=== PATIENT | female | born 1930 | race Caucasian/White ===

== ENCOUNTER 2017-08-22 13:05 | Inpatient (IN) | payer OTHER ==
[~2017-08-22] VITALS: Ht 162.5 cm; Wt 75.5 kg
[~2017-08-22 13:05] MED LIST: ALDACTONE25 MG PO; AVAPRO75 MG PO; BETHANECHOL CHL25 MG PO; COL-RITE100 M1 PO; COREG6.25 MG PO; CRESTOR20 M1 PO; DAILY VITAMIN1 EAC2 PO; DILTIAZEM 24HR120 MG PO; DOXYCYLINE50 MG PO; ELIQUIS2.5 M1 PO; FLOMAX0.4 MG PO; GLIPIZIDE10 M2 PO; GLYBURIDE2.5 MG PO; IMDUR SA30 MG PO; LANOXIN0.125 MG PO; LASIX20 MG PO; LISINOPRIL5 MG PO; NOVOLOG MI100 UNIT/1 SQ; OMEPRAZOLE MAGN20 MG PO; PACERONE200 MG PO; PRAVACHOL40 MG PO; RESTORIL15 MG PO; SYNTHROID0.15 MG PO; Synthroid,Lev150 MCG PO
[2017-08-22 13:32] LABS: HEMATOCRIT 33.6 % (37.0-47.0); HEMOGLOBIN 11.8 g/dl (12.0-16.0); MEAN CORPUSCULAR HGB 28.8 pg (27.0-31.0); MEAN CORPUSCULAR HGB CONC 35.1 g/dl (33.0-37.0); MEAN PLATELET VOLUME 8.9 fl (9.6-12.3); PLATELET COUNT AUTOMATED 308 10*3/uL (130-400); RED CELL DISTRI WIDTH 13.8 % (0-14.5); WHITE BLOOD COUNT 20.5 10*3/uL (4.8-10.8)
[2017-08-22 13:47] LABS: ALBUMIN 3.3 gm/dl (3.1-4.5); ALKALINE PHOSPHATASE 95 U/L (45-117); BUN 15 mg/dl (7-24); CHLORIDE 95 mmol/L (98-107); CREATININE 1.04 mg/dL (0.55-1.02); POTASSIUM 4.4 mmol/L (3.5-5.1); SGOT/AST 52 IU/L (3-35); SGPT/ALT 65 U/L (12-78); SODIUM 129 mmol/L (136-145); TOTAL PROTEIN 7.6 gm/dL (6.4-8.2)
[2017-08-22 13:50] LABS: PLATELET SUFFICIENCY NORMAL (NORMAL); TOTAL CELLS COUNTED 100 #CELLS
[2017-08-22 13:56] VITALS: BP 140/58
[2017-08-22 15:01] LABS: BILIRUBIN NEGATIVE (NEGATIVE); BLOOD TRACE-LYSED (NEGATIVE); CLARITY SL CLOUDY (CLEAR); COLOR YELLOW (YELLOW); GLUCOSE NEGATIVE (NEGATIVE); KETONE NEGATIVE (NEGATIVE); LEUKO ESTERASE 1+ (NEGATIVE); NITRITE NEGATIVE (NEGATIVE); SPECIFIC GRAVITY 1.015 (1.005-1.030)
[2017-08-22 15:10] LABS: RBC 0-2 rbc/hpf (0-2); WBC 16-20 wbc/hpf (0-5)
[2017-08-22 16:10] VITALS: BP 121/48
[2017-08-22] MEDS ORDERED: LEVOTHYROXINE100 MC1 PO (17:39)
[2017-08-22] MEDS ORDERED: LEVOXYL112 MCG PO (17:40)
[2017-08-22] MEDS ORDERED: SILENOR6 M1 PO (17:42)
[2017-08-22] MEDS ORDERED: MIRTAZAPINE15 M2 PO (17:42)
[2017-08-22] MEDS ORDERED: TRAMADOL HCL50 MG PO (17:43)
[2017-08-22] MEDS ORDERED: NOVOLOG FL100 UNIT/1 SQ (17:45)
[2017-08-22 20:00] VITALS: BP 141/56
[2017-08-22] MEDS ORDERED: ASPERCREME76.5 GM T (21:28)
[2017-08-22] MEDS ORDERED: MAPAP325 MG PO (21:29)
[2017-08-22] MEDS ORDERED: CEPACOL SORE T1 EACH MM (21:29)
[2017-08-22] MEDS ORDERED: MOM30 M1 PO (21:32)
[2017-08-22 23:58] VITALS: BP 108/42
[2017-08-23 05:55] LABS: BASO % 0.2 % (0.0-1.0); EOS # 0.1 10*3/uL (0.0-0.4); EOS % 0.8 % (1.0-4.0); HEMATOCRIT 31.3 % (37.0-47.0); HEMOGLOBIN 10.9 g/dl (12.0-16.0); LYMPH # 2.4 10*3/uL (1.3-4.4); LYMPH % 14.3 % (27.0-41.0); MEAN CELL VOLUME 84.6 fl (81.0-99.0); MEAN CORPUSCULAR HGB 29.5 pg (27.0-31.0); MEAN CORPUSCULAR HGB CONC 34.8 g/dl (33.0-37.0); MEAN PLATELET VOLUME 9.4 fl (9.6-12.3); MONO # 1.4 10*3/uL (0.1-1.0); MONO % 8.3 % (3.0-9.0); NEUT # 12.5 10*3/uL (2.3-7.9); NEUT % 75.8 % (47.0-73.0); PLATELET COUNT AUTOMATED 265 10*3/uL (130-400); RED CELL DISTRI WIDTH 13.9 % (0-14.5); WHITE BLOOD COUNT 16.6 10*3/uL (4.8-10.8)
[2017-08-23 06:24] LABS: BUN 11 mg/dl (7-24); CHLORIDE 99 mmol/L (98-107); CHOLESTEROL 140 mg/dL (<200); CREATININE 0.76 mg/dL (0.55-1.02); HDL CHOLESTEROL 43 mg/dl (40-60); LDL CHOLESTEROL 77 mg/dL (9-159); PHOSPHOROUS 2.8 mg/dL (2.5-4.9); POTASSIUM 3.8 mmol/L (3.5-5.1); SODIUM 134 mmol/L (136-145); TRIGLYCERIDES 102 mg/dl (<150); VLDL CHOLESTEROL 20 mg/dL (6-40)
[2017-08-23 06:31] LABS: THYROID STIM HORMONE (HS) 0.182 uIU/ml (0.358-4.75)
[2017-08-23 07:03] LABS: VITAMIN D, 25-HYDROXY 18.3 ng/mL (30-100)
[2017-08-23 08:00] VITALS: BP 142/57
[2017-08-23 12:00] VITALS: BP 105/66
[2017-08-23 16:00] VITALS: BP 130/59
[2017-08-23 20:00] VITALS: BP 126/42
[2017-08-24] VITALS: BP 125/49
[2017-08-24 06:21] LABS: BASO # 0.1 10*3/uL (0.0-0.1); BASO % 0.5 % (0.0-1.0); EOS # 0.4 10*3/uL (0.0-0.4); EOS % 3.1 % (1.0-4.0); HEMATOCRIT 31.2 % (37.0-47.0); HEMOGLOBIN 10.5 g/dl (12.0-16.0); LYMPH # 2.2 10*3/uL (1.3-4.4); LYMPH % 17.6 % (27.0-41.0); MEAN CELL VOLUME 85.5 fl (81.0-99.0); MEAN CORPUSCULAR HGB 28.8 pg (27.0-31.0); MEAN CORPUSCULAR HGB CONC 33.7 g/dl (33.0-37.0); MEAN PLATELET VOLUME 9.4 fl (9.6-12.3); MONO # 1.1 10*3/uL (0.1-1.0); MONO % 8.7 % (3.0-9.0); NEUT # 8.7 10*3/uL (2.3-7.9); NEUT % 69.7 % (47.0-73.0); PLATELET COUNT AUTOMATED 254 10*3/uL (130-400); RED BLOOD COUNT 3.65 10*6/uL (4.10-5.10); RED CELL DISTRI WIDTH 13.8 % (0-14.5); WHITE BLOOD COUNT 12.4 10*3/uL (4.8-10.8)
[2017-08-24 06:40] LABS: BUN 11 mg/dl (7-24); CHLORIDE 100 mmol/L (98-107); CREATININE 0.79 mg/dL (0.55-1.02); POTASSIUM 4.3 mmol/L (3.5-5.1); SODIUM 135 mmol/L (136-145)
[2017-08-24 08:00] VITALS: BP 128/52
[2017-08-24 16:00] VITALS: BP 132/67
[2017-08-24 20:00] VITALS: BP 132/53
[2017-08-25] VITALS: BP 131/51
[2017-08-25 08:00] VITALS: BP 153/60
[2017-08-25 12:00] VITALS: BP 127/56
[2017-08-25] MEDS ORDERED: AUGMENTIN 875875 MG PO (14:00)
[2017-08-25 16:00] VITALS: BP 134/63
[2017-08-25 20:00] VITALS: BP 154/63
[2017-08-26] VITALS: BP 121/52
[2017-08-26 07:12] LABS: BASO # 0.1 10*3/uL (0.0-0.1); BASO % 0.7 % (0.0-1.0); EOS # 0.6 10*3/uL (0.0-0.4); EOS % 6.8 % (1.0-4.0); HEMATOCRIT 31.6 % (37.0-47.0); HEMOGLOBIN 10.8 g/dl (12.0-16.0); LYMPH # 1.8 10*3/uL (1.3-4.4); MEAN CELL VOLUME 85.2 fl (81.0-99.0); MEAN CORPUSCULAR HGB 29.1 pg (27.0-31.0); MEAN CORPUSCULAR HGB CONC 34.2 g/dl (33.0-37.0); MEAN PLATELET VOLUME 9.3 fl (9.6-12.3); MONO % 11.3 % (3.0-9.0); NEUT # 5.5 10*3/uL (2.3-7.9); NEUT % 60.5 % (47.0-73.0); PLATELET COUNT AUTOMATED 319 10*3/uL (130-400); RED BLOOD COUNT 3.71 10*6/uL (4.10-5.10); RED CELL DISTRI WIDTH 13.8 % (0-14.5); WHITE BLOOD COUNT 9.1 10*3/uL (4.8-10.8)
[2017-08-26 07:41] LABS: BUN 11 mg/dl (7-24); CHLORIDE 100 mmol/L (98-107); CREATININE 0.71 mg/dL (0.55-1.02); POTASSIUM 4.2 mmol/L (3.5-5.1); SODIUM 136 mmol/L (136-145)
[2017-08-26 08:00] VITALS: BP 140/67
== END 2017-08-26 11:15 | disposition home or self-care (01) | DRG 871 ==
LOC: ED 13:05 → 5E 15:32 → EDHOLD 15:32 → 5E 15:41
PROVIDERS: Emergency Medicine; Student in an Organized Health Care Education/Training Program
DX: A40.3 Sepsis due to Streptococcus pneumoniae (principal); N17.0 Acute kidney failure with tubular necrosis; J18.1 Lobar pneumonia, unspecified organism; E11.65 Type 2 diabetes mellitus with hyperglycemia; D64.9 Anemia, unspecified; I50.9 Heart failure, unspecified; N39.0 Urinary tract infection, site not specified; E44.1 Mild protein-calorie malnutrition; E87.1 Hypo-osmolality and hyponatremia; B96.89 Other specified bacterial agents as the cause of diseases classified elsewhere; K21.9 Gastro-esophageal reflux disease without esophagitis; E55.9 Vitamin D deficiency, unspecified; E03.9 Hypothyroidism, unspecified; G89.29 Other chronic pain; M25.551 Pain in right hip; Z68.26 Body mass index [BMI] 26.0-26.9, adult; Z95.810 Presence of automatic (implantable) cardiac defibrillator; I25.2 Old myocardial infarction; Z95.1 Presence of aortocoronary bypass graft; Z79.4 Long term (current) use of insulin; Z95.5 Presence of coronary angioplasty implant and graft; Z82.49 Family history of ischemic heart disease and other diseases of the circulatory system; Z83.3 Family history of diabetes mellitus; Z88.2 Allergy status to sulfonamides; Z88.5 Allergy status to narcotic agent; Z79.1 Long term (current) use of non-steroidal anti-inflammatories (NSAID); Z79.899 Other long term (current) drug therapy; Z87.11 Personal history of peptic ulcer disease

== ENCOUNTER 2019-01-25 19:02 | Inpatient (IN) | payer MEDICARE, OTHER ==
[~2019-01-25] VITALS: Ht 167.6 cm; Wt 78.0 kg
--- NOTE | ~2019-01-25 | PR ---
[place], [place] PROGRESS NOTE NAME: JEROD RO UNIT #: [id number] ROOM: 521 DOCTOR: YONNY ALCANTARA [facility] BIRTHDATE: [birth year] DOS: 01/28/2019 SUBJECTIVE: The patient is alert, responding well. Not dyspneic, not tachypneic. No significant orthopnea. Color is good. Edema is still present, but it appears to be improving. OBJECTIVE; VITAL SIGNS: Stable. LUNGS: Diminished breath sounds at bases with minimal basilar rales, no wheezing. HEART: S1, S2 irregular. Heart rate is optimal, 2/6 systolic murmur. IMPRESSION: The patient has continued to improve, making good progress. PLAN: We will continue current management. The patient should be in discuss with the physical therapy and I will talk to Dr. Godfrey will make the appropriate arrangements and after discussing with the plan, it look may not want to go back to [facility]. Rest of the family was reassured. TANK BLANCAS MD CM:PNTRANS [id number] TANK BLANCAS MD [facility] 01/28/19 1144 interface
--- NOTE | ~2019-01-25 | EKG ---
[place], [place] ELECTROCARDIOGRAM REPORT NAME: JEROD RO UNIT #: [id number] ROOM: 521 DOCTOR: JEAN DRAFT REPORT BIRTHDATE: [birth year] [facility] Test Date: 2019-01-25 Test Time: 19:44:29 Pat Name: JEROD RO Department: Room: 521 Gender: F Sr Vice President: : 1930 Requested By: ADRYAN ALVAREZ Order Number: [id number] Reading MD: Dominique Knowles MD Measurements Intervals [place] Rate: 91 P: AR: QRS: -7 QRSD: 128 T: 173 QT: 359 QTc: 442 Interpretive Statements Atrial fibrillation Ventricular premature complex IVCD, consider atypical LBBB Compared to ECG 12/30/2018 16:50:59 Ventricular premature complex(es) now present Ventricular-paced complex(es) or rhythm no longer present Electronically Signed On 01-29-2019 9:05:54 PDT by Dominique Knowles MD CM:EKGRPT:ELECTROCARDIOGRAM REPORT 43 4 ADRYAN ALVAREZ EPIPHANY DRAFT REPORT ADRYAN ALVAREZ
--- NOTE | ~2019-01-25 | O ---
[place], [place] OPERATIVE NOTE [id number] UN[facility] #: [id number] ROOM: 521 DOCTOR: YONNY ALCANTARA [facility] BIRTHDATE: [birth year] DOS: 02/01/2019 I saw the patient and also talked to the patient and the patient feels a lot better, no dyspnea, edema markedly improved. PHYSICAL EXAMINATION: SKIN: Warm, not diaphoretic. Color is good. NECK: No significant jugular venous distention. LUNGS: Diminished breath sounds at the bases. No wheezing. HEART: S1, S2 regular. Heart rate is optimal. ABDOMEN: Soft, 1-2+. EXTREMITIES: Edema is improved and clinically doing lot better, less dyspnea. Peripheral edema, markedly improved. IMPRESSION: Hemodynamically, clinically stable. Congestive heart failure, improving, compensating quite well. PLAN: We will continue with the current management. Blood pressure is also stable at 108/58, heart rate is 75, afebrile. The patient is on oxygen at home also. TANK BLANCAS MD CM:OPRECORD:OPERATIVE NOTE [id number] TANK BLANCAS MD [facility] 02/02/1939 interface
--- NOTE | ~2019-01-25 | CON ---
[place], [place] REPORT OF CONSULTATION NAME: JAYJAYJEROD Van UNIT #: [id number] ROOM: 521 DOCTOR: YONNY ALCANTARA [facility] BIRTHDATE: [birth year] DOS: 01/26/2019 HISTORY OF PRESENT ILLNESS: The patient came with history of progressive dyspnea and progressive increasing peripheral edema. The patient has systolic congestive heart failure with ejection fraction of 20-25%, who appears to be ischemic and primary Dr. Luis Godfrey and the patient's family and the sisters called back not getting optimal care in the current skilled care facility and they want to change this subsequently; however, the patient with recently progressive congestive heart failure could be systolic and also may be some of this due to diastolic dysfunction. Denies any significant chest discomfort, no syncope. Progressive fatigue. The patient with history of coronary artery disease, chronic kidney disease, congestive heart failure, hypertension, coronary artery bypass surgery and history of pacemaker placement. The patient was in the emergency clinic from emergency transport service. She appears to have some risks. There is some personality issues with the family and the staff at the snf. The patient's ejection fraction about 15%-20%, global hypokinesis of the left ventricle and paced rhythm. The patient was recently in the hospital with enlarged left ventricle congestive heart failure. PHYSICAL EXAMINATION: VITAL SIGNS: Stable. Blood pressure 120/68. GENERAL: Not any acute distress, with good response to the therapy. NECK: With positive hepatojugular reflux. LUNGS: Diminished breath sounds at bases, bibasilar rales. HEART: S1, S2 regular. Heart rate is optimal. 2/6 systolic murmur. The patient is afebrile. Cognition is optimal. ABDOMEN: Soft. No rebound tenderness noted. LABORATORY DATA: Sodium 146, potassium 3.7 with supplements and GFR is low. Creatinine 1.61. DIAGNOSES: There is stage 3 chronic kidney disease, hypertension, hypertensive cardiovascular disease, and atrial fibrillation on anticoagulation, congestive heart failure, history of atrial fibrillation, coronary artery disease, coronary artery bypass surgery and the pacemaker for bradyarrhythmias. PLAN: We will continue the current management and medications and further dialysis and increased volume status that may help and responding fairly well with current management. [place], [place] REPORT OF CONSULTATION NAME: JEROD RO UNIT #: [id number] ROOM: 521 DOCTOR[facility] [birth year] TANK BLANCAS MD CM:CONSTR:REPORT OF CONSULTATION 1032 02/11/19 1457 interface
[~2019-01-25 19:02] MED LIST changes: +ALDACTONE25 M1 PO; +ASPERCREME76.5 GM T; +ASPIRIN ADULT L81 M1 PO; +AUGMENTIN 875875 MG PO; +BRILINTA90 M1 PO; +CARVEDILOL6.25 MG PO; +CEPACOL SORE T1 EACH MM; +COREG12.5 M1 PO; +COREG3.125 MG PO; +DIGOX125 MCG PO; +DOCUSATE SODIU100 M2 PO; +DULCOLAX10 M1 R; +FLEET ENEMA 13133 ML R; +FUROSEMIDE20 M1 PO; +FUROSEMIDE40 MG PO; +GABAPENTIN100 M2 PO; +IMDUR SA60 M1 PO; -LANOXIN0.125 MG PO; +LASIX40 MG PO; +LEVOTHYROXINE100 MC1 PO; +LEVOXYL112 MCG PO; +LOSARTAN POTASS25 M1 PO; +MAPAP325 MG PO; +MIRTAZAPINE15 M2 PO; +MOM30 M1 PO; +NOVOLOG FL100 UNIT/1 SQ; +PRILOSEC20 M1 PO; +ROZEREM8 MG PO; +SILENOR6 M1 PO; +SYNTHROID,LEV125 MCG PO; +TRAMADOL HCL50 MG PO; +VITAMIN D50000 UNIT PO; +Ventolin 02.5 MG/3 M INH
[2019-01-25 19:16] VITALS: BP 110/70
[2019-01-25 20:16] LABS: BASO % 0.2 % (0.0-1.0); EOS # 0.1 10*3/uL (0.0-0.4); EOS % 2.1 % (1.0-4.0); HEMATOCRIT 28.6 % (37.0-47.0); HEMOGLOBIN 8.3 g/dl (12.0-16.0); LYMPH # 1.3 10*3/uL (1.3-4.4); LYMPH % 21.5 % (27.0-41.0); MEAN CELL VOLUME 80.3 fl (81.0-99.0); MEAN CORPUSCULAR HGB 23.3 pg (27.0-31.0); MEAN PLATELET VOLUME 9.2 fl (9.6-12.3); MONO # 0.5 10*3/uL (0.1-1.0); MONO % 7.7 % (3.0-9.0); NEUT % 67.8 % (47.0-73.0); PLATELET COUNT AUTOMATED 238 10*3/uL (130-400); RED BLOOD COUNT 3.56 10*6/uL (4.10-5.10); RED CELL DISTRI WIDTH 21.2 % (0-14.5); WHITE BLOOD COUNT 5.9 10*3/uL (4.8-10.8)
[2019-01-25 20:27] LABS: ACT PARTIAL THROMBO TIME 25.9 SECONDS (20.0-32.1); INTERNATIONAL NORM RATIO 1.1 (2.0-3.5)
[2019-01-25 20:34] LABS: ALBUMIN 3.4 gm/dl (3.1-4.5); CREATININE 1.61 mg/dL (0.55-1.02); POTASSIUM 3.2 mmol/L (3.5-5.1); TOTAL PROTEIN 6.9 gm/dL (6.4-8.2); TROPONIN I 0.037 ng/ml (<0.045)
[2019-01-25 21:32] VITALS: BP 116/72
[2019-01-26 00:25] VITALS: BP 120/68
--- NOTE | 2019-01-26 00:27 | NUR ---
A 88, admitted to 5E, under the services of JOSE Tamez MD with a diagnosis of CHF. Chief complaint is ANXIETY. Patient arrived via bed from ER. Monitor applied. Initial assessment completed. Vital signs taken and recorded. JOSE TAMEZ MD notified of admission to the unit. Orders received. See assessment for past medical history, medications and allergies. Patient and/or family oriented to unit. [facility] visitation policy reviewed. Clothing/patient valuable form completed. AURA CONTRERAS
--- NOTE | 2019-01-26 05:37 | NUR ---
JEROD RO [id number] Please refer to the physician's history and physical for past medical history, comorbid conditions, and allergies. Diagnosis: DYSPNEA,EDEMA,ACUTE SYSTOLIC HEART FAILURE Jerad Score: 12,HIGH RISK WOUND DESCRIPTIONS: Wound Number: 1 Location of the wound: left posterior upper thigh Type of wound: stage 3 Thickness: Full Size: 0.4cm x 0.4cm x <0.1cm Tunneling: none Undermining: none Sinus Tract: none Presence of Exudate: Serosanguineous Amount: Light Color: Yellow, red Odor: None Periwound Skin Appearance: Normal Wound edges: approximated Pain (associated with wound): none at time of assessment How does patient state this happened? pt unsure when this started Wound Number: 2 Location of the wound: left buttocks distal Type of wound: stage 3 Thickness: Full Size: 0.4cm x 0.3cm x <0.1cm Tunneling: none Undermining: none Sinus Tract: none Presence of Exudate: Serosanguineous Amount: Light Color: Yellow, red Odor: None Periwound Skin Appearance: Normal Wound edges: approxiamted Pain (associated with wound): none at time of assessment How does patient state this happened? pt unsure when this started Wound Number: 3 Location of the wound: left buttocks proximal Type of wound: stage 3 Thickness: Full Size: 0.7cm x 1.2cm x <0.1cm Tunneling: none Undermining: none Sinus Tract: none Presence of Exudate: Serosanguineous Amount: Light Color: Yellow,red Odor: None Periwound Skin Appearance: Normal Wound edges: approximated Pain (associated with wound): none at time of assessment How does patient state this happened? pt unsure when this started Bilateral heels are mushy to touch. No open areas at time of assessment. Color is pink and blanchable at time of assessment. Surface the patient is resting on: Isoflex SKIN PREVENTION RECOMMENDATION: 1. Pressure redistribution support surface as appropriate 2. Elevate heels 3. Remove boots/TEDS every shift and reapply 4. Head of bed 30 degrees as tolerated 5. Assess nutrition and hydration 6. Manage moisture 7. Avoid the use of containment devices while in bed 8. Use absorptive products on surfaces limit layers of linens on bed 9. Turn and reposition every 1-2 hours in bed and every 1 hour in chair as tolerated 10. Weight shifts every 15 minutes while up in chair 11. Offloading with pillows or device to keep heels elevated off bed 12. Monitor skin at least every shift 13. Inspect under medical devices twice a day WOUND TREATMENT RECOMMENDATIONS: Stage 3 guidelines: Cleanse left posterior upper thigh, left proximal buttocks and left distal buttocks with nss and apply sureprep around the wound therahoney to wound bed and cover with optifoam gentle. Consult Analilia OLIVO- for possible debridement. Wheelchair cushion when oob. Heel raiser pro boots to bilateral feet while in bed.
[2019-01-26 06:51] LABS: BASO % 0.2 % (0.0-1.0); EOS # 0.1 10*3/uL (0.0-0.4); EOS % 2.5 % (1.0-4.0); HEMATOCRIT 31.8 % (37.0-47.0); HEMOGLOBIN 8.9 g/dl (12.0-16.0); LYMPH # 1.2 10*3/uL (1.3-4.4); LYMPH % 23.4 % (27.0-41.0); MEAN CELL VOLUME 79.9 fl (81.0-99.0); MEAN CORPUSCULAR HGB 22.4 pg (27.0-31.0); MEAN PLATELET VOLUME 9.1 fl (9.6-12.3); MONO # 0.5 10*3/uL (0.1-1.0); MONO % 8.7 % (3.0-9.0); NEUT # 3.4 10*3/uL (2.3-7.9); NEUT % 64.8 % (47.0-73.0); PLATELET COUNT AUTOMATED 226 10*3/uL (130-400); RED BLOOD COUNT 3.98 10*6/uL (4.10-5.10); RED CELL DISTRI WIDTH 21.3 % (0-14.5); WHITE BLOOD COUNT 5.3 10*3/uL (4.8-10.8)
[2019-01-26 07:11] LABS: ALBUMIN 3.6 gm/dl (3.1-4.5); CREATININE 1.36 mg/dL (0.55-1.02); POTASSIUM 3.1 mmol/L (3.5-5.1)
[2019-01-26 07:19] LABS: FREE T4 0.81 ng/dl (0.76-1.46); PHOSPHOROUS 2.7 mg/dL (2.5-4.9); TOTAL PROTEIN 7.3 gm/dL (6.4-8.2)
[2019-01-26 07:57] LABS: THYROID STIM HORMONE (HS) 30.4 uIU/ml (0.358-4.75)
[2019-01-26 08:00] VITALS: BP 112/72
--- NOTE | 2019-01-26 08:16 | NUR ---
PAGE SENT OUT TO DR. Rehan BLANCAS FOR CONSULT ON PATIENT.
--- NOTE | 2019-01-26 08:24 | NUR ---
DR AYO Van MADE AWARE OF CONSULT. SAID HE WILL STOP IN AND SEE THE PATIENT TODAY.
[2019-01-26 08:25] LABS: BILIRUBIN NEGATIVE (NEGATIVE); BLOOD NEGATIVE (NEGATIVE); CLARITY SL CLOUDY (CLEAR); COLOR YELLOW (YELLOW); GLUCOSE NEGATIVE (NEGATIVE); KETONE NEGATIVE (NEGATIVE); LEUKO ESTERASE TRACE (NEGATIVE); NITRITE POSITIVE (NEGATIVE); UROBILINOGEN 0.2 E.U./dl (0.2-1.0)
[2019-01-26 08:38] LABS: BACTERIA 4+
--- NOTE | 2019-01-26 10:00 | NUR ---
Aaliyah, palliative care nurse, in to see patient. Son wishes no more palliative care.
[2019-01-26 11:48] VITALS: BP 116/59
--- NOTE | 2019-01-26 12:31 | NUR ---
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
--- NOTE | 2019-01-26 13:00 | NUR ---
Plasticator in to see patient. She is a LTC resident at [facility] and wishes not to return. 2 sisters are at the bedside. Patient and sisters would like a referral to be made to [facility]. shoe planner notified.
--- NOTE | 2019-01-26 13:39 | NUR ---
Although patient is group home at [facility], patient requested to [facility] Patient moving out of [facility] to another facility. will follow
[2019-01-26 16:00] VITALS: BP 115/75
[2019-01-26 20:00] VITALS: BP 100/57
--- NOTE | 2019-01-26 20:30 | NUR ---
24 HR chart check completed.
[2019-01-27] VITALS: BP 116/54
--- NOTE | 2019-01-27 01:20 | NUR ---
PATIENT SLEEPING. NO SIGNS OR SYMPOTMS OF DISTRESS.
[2019-01-27 07:00] LABS: ALBUMIN 3.7 gm/dl (3.1-4.5); CREATININE 1.27 mg/dL (0.55-1.02)
--- NOTE | 2019-01-27 09:00 | NUR ---
Rn Progressive Care Unit in to see patient. No new needs or request at this time. Patient is a LTC resident at [facility]. material planner following for referrals to [facility] [place].
[2019-01-27 12:00] VITALS: BP 116/63
--- NOTE | 2019-01-27 13:00 | NUR ---
16FR VALENTINO INSERTED USING STERILE TECHNIQUE. IMMEDIATE RETURN OF 200CC STRAW COLORED URINE. PT TOLERATED PROCEDURE WELL
[2019-01-27 16:00] VITALS: BP 103/63
[2019-01-27 20:00] VITALS: BP 100/53
[2019-01-28] VITALS: BP 97/50
[2019-01-28 06:52] LABS: BASO % 0.4 % (0.0-1.0); EOS # 0.3 10*3/uL (0.0-0.4); EOS % 4.6 % (1.0-4.0); HEMATOCRIT 27.8 % (37.0-47.0); HEMOGLOBIN 7.9 g/dl (12.0-16.0); LYMPH # 1.2 10*3/uL (1.3-4.4); LYMPH % 21.1 % (27.0-41.0); MEAN CELL VOLUME 79.9 fl (81.0-99.0); MEAN CORPUSCULAR HGB 22.7 pg (27.0-31.0); MEAN CORPUSCULAR HGB CONC 28.4 g/dl (33.0-37.0); MEAN PLATELET VOLUME 9.4 fl (9.6-12.3); MONO # 0.4 10*3/uL (0.1-1.0); MONO % 7.2 % (3.0-9.0); NEUT # 3.8 10*3/uL (2.3-7.9); NEUT % 66.3 % (47.0-73.0); PLATELET COUNT AUTOMATED 173 10*3/uL (130-400); RED BLOOD COUNT 3.48 10*6/uL (4.10-5.10); RED CELL DISTRI WIDTH 20.7 % (0-14.5); WHITE BLOOD COUNT 5.7 10*3/uL (4.8-10.8)
[2019-01-28 07:21] LABS: POTASSIUM 4.2 mmol/L (3.5-5.1)
[2019-01-28 07:22] LABS: CREATININE 1.18 mg/dL (0.55-1.02)
[2019-01-28 08:00] VITALS: BP 102/48
[2019-01-28 12:00] VITALS: BP 98/52
--- NOTE | 2019-01-28 12:52 | NUR ---
Patient has been accepted [facility] from [facility]. Patient is ok to go when medically stable for discharge.
[2019-01-28 16:00] VITALS: BP 97/56
--- NOTE | 2019-01-28 19:20 | NUR ---
2 SISTERS PRESENT AT BEDSIDE DURING REPORT. QUESTIONS / CONCERNS ADDRESSED
[2019-01-28 20:00] VITALS: BP 100/43; BP 102/50
--- NOTE | 2019-01-28 20:46 | NUR ---
24 HR chart check completed.
--- NOTE | 2019-01-28 21:00 | NUR ---
RESTING WITH EYES CLOSED. RESPIRATIONS EASY. LUNGS DIMINISHED. PULSE OX 97% 3L, HUMIDIFICATION APPLIED. +2 PITTING EDEMA NOTED FROM WAIST DOWN. BILATERAL TUBI-RETAIL MERCHANDISING COORDINATOR IN PLACE. HEEL PROTECTORS OBTAINED AND PLACED PER ORDER. VALENTINO PATENT. CALL LIGHT WITHIN REACH. BED ALARM IN PLACE FOR SAFETY
[2019-01-29] VITALS: BP 96/48
--- NOTE | 2019-01-29 | NUR ---
SLEEPING. NO ACUTE DISTRESS NOTED. RESPIRATIONS EASY. VSS. CALL LIGHT WITHIN REACH. BED ALARM MAINTAINED FOR SAFETY
[2019-01-29] MEDS ORDERED: LEVEMIR100 UNIT/1 SC (04:29)
[2019-01-29] MEDS ORDERED: ATIVAN0.5 MG PO (04:30)
[2019-01-29] MEDS ORDERED: MORPHINE S20 MG/5 ML PO (04:33)
[2019-01-29] MEDS ORDERED: NOVOLOG10 ML SC (04:33)
--- NOTE | 2019-01-29 06:00 | NUR ---
SLEPT THROUGHOUT NIGHT WITH NO DISTRESS NOTED. PATIENT UNCOOPERATIVE WITH TURNING AND REPOSITIONING. O2 IN USE. CALL LIGHT WITHIN REACH. BED ALARM MAINTAINED FOR SAFETY
[2019-01-29 07:00] LABS: BASO % 0.4 % (0.0-1.0); EOS # 0.2 10*3/uL (0.0-0.4); EOS % 4.8 % (1.0-4.0); HEMATOCRIT 25.7 % (37.0-47.0); HEMOGLOBIN 7.3 g/dl (12.0-16.0); LYMPH # 1.3 10*3/uL (1.3-4.4); LYMPH % 26.7 % (27.0-41.0); MEAN CELL VOLUME 78.1 fl (81.0-99.0); MEAN CORPUSCULAR HGB 22.2 pg (27.0-31.0); MEAN CORPUSCULAR HGB CONC 28.4 g/dl (33.0-37.0); MEAN PLATELET VOLUME 9.5 fl (9.6-12.3); MONO # 0.4 10*3/uL (0.1-1.0); NEUT % 59.7 % (47.0-73.0); PLATELET COUNT AUTOMATED 164 10*3/uL (130-400); RED BLOOD COUNT 3.29 10*6/uL (4.10-5.10); RED CELL DISTRI WIDTH 20.4 % (0-14.5)
[2019-01-29 07:12] LABS: CREATININE 1.25 mg/dL (0.55-1.02); POTASSIUM 4.1 mmol/L (3.5-5.1)
[2019-01-29 08:00] VITALS: BP 82/44
--- NOTE | 2019-01-29 09:00 | NUR ---
Records Clerk in to see patient. No new needs or request at this time. When medically stable she will be discharged to [facility]. strategic planner following.
--- NOTE | 2019-01-29 09:13 | NUR ---
HELD AM COREG AND COZAR FOR BP 82/44 MANUALLY.
--- NOTE | 2019-01-29 09:57 | NUR ---
ADMINISTERED MIRALAX PO FOR CONSTIPATION.
[2019-01-29 12:00] VITALS: BP 82/42
[2019-01-29 16:00] VITALS: BP 84/46
[2019-01-29 17:27] VITALS: BP 98/50; BP 98/60
--- NOTE | 2019-01-29 17:36 | NUR ---
DR. BLANCAS NOTIFIED OF BLOOD PRESSURES TODAY; OBTAINED ORDERS TO DISCONTINUE COREG AND COZAAR, DECREASE LASIX TO 20MG IV [id number], GIVE NORMAL SALINE 250ML BOLUS, DECREASE IMDUR TO 15 MG QHS, DECREASE FREQUENCY OF ALDACTONE TO FRI-FRI-, DECREASE K-DUR TO 20MEQ DAILY.
[2019-01-29 20:00] VITALS: BP 96/56
--- NOTE | 2019-01-29 20:50 | NUR ---
24 HR chart check completed.
--- NOTE | 2019-01-29 21:00 | NUR ---
RESTING WITH EYES CLOSED. RESPIRATIONS EASY. LUNGS DIMINISHED. PULSE OX 97% 3L HUMIDIFIED, TITRATED TO 2.5L. +1 PITTING EDEMA WAIST DOWN. BILATERAL TUBI-SPECIAL EDUCATION EDUCATIONAL ASSISTANT AND HEEL PROTECTORS IN PLACE. CALL LIGHT WITHIN REACH. NO VOICED COMPLAINTS. BED ALARM MAINTAINED FOR SAFETY
[2019-01-30] VITALS: BP 105/53
--- NOTE | 2019-01-30 | NUR ---
SLEEPING. PULSE OX 95% 2.5L
--- NOTE | 2019-01-30 06:00 | NUR ---
SLEPT THROUGHOUT NIGHT WITH NO DISTRESS NOTED. RESPIRATIONS EASY. O2 IN USE. CALL LIGHT WITHIN REACH
[2019-01-30 06:23] LABS: BASO % 0.4 % (0.0-1.0); EOS # 0.3 10*3/uL (0.0-0.4); EOS % 4.6 % (1.0-4.0); HEMATOCRIT 29.1 % (37.0-47.0); HEMOGLOBIN 8.4 g/dl (12.0-16.0); LYMPH # 1.3 10*3/uL (1.3-4.4); LYMPH % 23.2 % (27.0-41.0); MEAN CELL VOLUME 77.8 fl (81.0-99.0); MEAN CORPUSCULAR HGB 22.5 pg (27.0-31.0); MEAN CORPUSCULAR HGB CONC 28.9 g/dl (33.0-37.0); MEAN PLATELET VOLUME 9.3 fl (9.6-12.3); MONO # 0.6 10*3/uL (0.1-1.0); MONO % 10.2 % (3.0-9.0); NEUT # 3.5 10*3/uL (2.3-7.9); NEUT % 61.4 % (47.0-73.0); PLATELET COUNT AUTOMATED 168 10*3/uL (130-400); RED BLOOD COUNT 3.74 10*6/uL (4.10-5.10); RED CELL DISTRI WIDTH 20.5 % (0-14.5); WHITE BLOOD COUNT 5.7 10*3/uL (4.8-10.8)
[2019-01-30 06:46] LABS: CREATININE 1.24 mg/dL (0.55-1.02); POTASSIUM 3.9 mmol/L (3.5-5.1)
[2019-01-30 08:23] LABS: FERRITIN 49.2 ng/mL (10.0-291.0)
--- NOTE | 2019-01-30 10:27 | NUR ---
DRESSINGS CHANGED PER ORDER.
[2019-01-30 12:00] VITALS: BP 102/48
--- NOTE | 2019-01-30 15:51 | NUR ---
2 SISTERS AT THE BEDSIDE. QUESTIONS/CONCERNED ADDRESSED.
[2019-01-30 16:00] VITALS: BP 98/54
[2019-01-30 20:00] VITALS: BP 114/54
[2019-01-31] VITALS: BP 108/57
[2019-01-31 06:40] LABS: CREATININE 1.11 mg/dL (0.55-1.02); POTASSIUM 3.7 mmol/L (3.5-5.1)
[2019-01-31 12:00] VITALS: BP 95/50
[2019-01-31 16:00] VITALS: BP 100/51
--- NOTE | 2019-01-31 17:43 | NUR ---
VALENTINO CATHETER REMOVED PER ORDER.
[2019-01-31 20:00] VITALS: BP 121/64
[2019-02-01] VITALS: BP 107/61
--- NOTE | 2019-02-01 03:05 | NUR ---
24 HR chart check completed.
[2019-02-01 06:27] LABS: BASO % 0.3 % (0.0-1.0); EOS # 0.2 10*3/uL (0.0-0.4); EOS % 4.2 % (1.0-4.0); HEMATOCRIT 33.3 % (37.0-47.0); HEMOGLOBIN 9.9 g/dl (12.0-16.0); LYMPH # 1.4 10*3/uL (1.3-4.4); LYMPH % 23.7 % (27.0-41.0); MEAN CELL VOLUME 75.3 fl (81.0-99.0); MEAN CORPUSCULAR HGB 22.4 pg (27.0-31.0); MEAN CORPUSCULAR HGB CONC 29.7 g/dl (33.0-37.0); MEAN PLATELET VOLUME 9.5 fl (9.6-12.3); MONO # 0.5 10*3/uL (0.1-1.0); MONO % 8.5 % (3.0-9.0); NEUT # 3.6 10*3/uL (2.3-7.9); PLATELET COUNT AUTOMATED 165 10*3/uL (130-400); RED BLOOD COUNT 4.42 10*6/uL (4.10-5.10); RED CELL DISTRI WIDTH 20.4 % (0-14.5); WHITE BLOOD COUNT 5.8 10*3/uL (4.8-10.8)
[2019-02-01 06:32] LABS: BUN 14 mg/dl (7-24); CHLORIDE 98 mmol/L (98-107); POTASSIUM 3.3 mmol/L (3.5-5.1); SODIUM 138 mmol/L (136-145)
[2019-02-01 08:00] VITALS: BP 108/58
--- NOTE | 2019-02-01 09:00 | NUR ---
Employee Development Specialist in to see patient. No new needs or request at this time. When medically stable she will be discharged to [facility]. conference planner following.
--- NOTE | 2019-02-01 11:33 | NUR ---
PHYSICAL THERAPY PAtient is jail care and sleeping. FAmily member in room requests to let patient sleep at this time. Family member in room reports patient may be D/C today back to prison. Will check on patient later this date. Thank you for this referral. Kelsie Cano,PT
[2019-02-01 12:00] VITALS: BP 88/52
--- NOTE | 2019-02-01 14:41 | NUR ---
PHYSICAL THERAPY PAtient requests no PT this date. Thank you for this referral. Kelsie Cano,PT
[2019-02-01 16:00] VITALS: BP 112/60
[2019-02-01 20:00] VITALS: BP 97/65
[2019-02-02] VITALS: BP 105/61
--- NOTE | 2019-02-02 02:43 | NUR ---
CALL RECIEVED FROM [employer] AT THIS TIME. PATIENTS HEART RATE 140'S. WHEN IN TO ASSESS PATIENT, PATIENT WAS CLIMBING OUT OF BED IN TEARS BECAUSE SHE WOKE UP AND FORGOT WHERE SHE WAS AND SHE DIDN'T THINK ANYONE WAS HERE. REASSURED PATIENT SHE HAS BEEN BEING CHECKED ON ALL NIGHT AND THIS NURSE AND HER AID WILL BE WITH HER ALL NIGHT LONG. PATIENT STATED THAT SHE GOT VERY ANXIOUS AND VERY UPSET AND SHE IS FRUSTRATED AND NERVOUS GOING TO A NEW LONG-TERM TODAY. SHE STATED THAT SHE CAN FEEL THAT HER HEART IS RACING, AND THAT IT WILL CALM DOWN ONCE SHE CALMS DOWN. 1:1 SPENT WITH PATIENT AND REASSURANCE WAS GIVEN.
--- NOTE | 2019-02-02 02:47 | NUR ---
PATIENT HEART RATE NOW IN THE 110'S. PATIENT MUCH MORE RELAXED. CALL LIGHT WITHN REACH AND REASSURANCE GIVEN ONCE AGAIN, BEFORE HER SISTERS LEFT THE OTHER NIGHT, SHE STATED THAT SHE GETS THIS WAY SOMETIMES.
[2019-02-02 07:04] LABS: CREATININE 1.19 mg/dL (0.55-1.02)
[2019-02-02 07:05] LABS: POTASSIUM 4.4 mmol/L (3.5-5.1)
[2019-02-02 07:59] VITALS: BP 100/62
--- NOTE | 2019-02-02 08:05 | NUR ---
PHYSICAL THERAPY PAtient with nursing at this time. Will attempt later this date. Thak you for this referral. Kelsie Cano,PT
--- NOTE | 2019-02-02 09:00 | NUR ---
Candy Separator Hard in to see patient. No new needs or request at this time. When medically stable she will be discharged to [facility]. manufacturing planner following. Notified Dr. Mcgrath.
--- NOTE | 2019-02-02 11:09 | NUR ---
PHYSICAL THERAPY PAtient requests no PT this date. PAtients family member visiting reports she may return to [facility] this date. Thank you for this referral. Kelsie Cano,PT
[2019-02-02 11:26] VITALS: BP 102/59
[2019-02-02] MEDS ORDERED: LISINOPRIL2.5 MG PO (12:28)
--- NOTE | 2019-02-02 12:55 | NUR ---
Patient is discharged to [facility] in [place]. Transportation scheduled for 2 PM with [facility] per family request. NH, nursing/steward/stewardess third and patients sister notified.
--- NOTE | 2019-02-02 13:00 | NUR ---
WOUND DISCHARGE PICTURES TAKEN-SEE WOUND ASSESSMENT SCREEN.
--- NOTE | 2019-02-02 13:15 | NUR ---
IV AND TELEMETRY REMOVED FOR DISCHARGE.
--- NOTE | 2019-02-02 14:05 | NUR ---
Discharge instructions reviewed with patient/family. Patient receptive and verbalizes understanding. Follow-up care arranged. Written instructions given to patient/family. PATIENT DISCHARGED VIA [facility] TO [facility]. SUMAN IRAHETA
== END 2019-02-02 14:05 | disposition other institution (70) | DRG 291 ==
LOC: ED 19:02 → EDHOLD 23:28 → 5E 23:28
PROVIDERS: Family Medicine; Internal Medicine Cardiovascular Disease; Internal Medicine Nephrology; Nurse Practitioner Family; ADMIT Internal Medicine
DX: I13.0 Hypertensive heart and chronic kidney disease with heart failure and stage 1 through stage 4 chronic kidney disease, or unspecified chronic kidney disease (principal); I50.23 Acute on chronic systolic (congestive) heart failure; N17.2 Acute kidney failure with medullary necrosis; N39.0 Urinary tract infection, site not specified; L97.129 Non-pressure chronic ulcer of left thigh with unspecified severity; E87.1 Hypo-osmolality and hyponatremia; J98.11 Atelectasis; I48.91 Unspecified atrial fibrillation; E11.22 Type 2 diabetes mellitus with diabetic chronic kidney disease; L89.322 Pressure ulcer of left buttock, stage 2; E11.65 Type 2 diabetes mellitus with hyperglycemia; E78.5 Hyperlipidemia, unspecified; N18.3 Chronic kidney disease, stage 3 (moderate); I25.10 Atherosclerotic heart disease of native coronary artery without angina pectoris; E11.622 Type 2 diabetes mellitus with other skin ulcer; D64.9 Anemia, unspecified; B96.20 Unspecified Escherichia coli [E. coli] as the cause of diseases classified elsewhere; Z66 Do not resuscitate; R79.82 Elevated C-reactive protein (CRP); E83.41 Hypermagnesemia; K59.00 Constipation, unspecified; Z51.5 Encounter for palliative care; E87.6 Hypokalemia; K21.9 Gastro-esophageal reflux disease without esophagitis; E03.9 Hypothyroidism, unspecified; Z95.1 Presence of aortocoronary bypass graft; Z95.0 Presence of cardiac pacemaker; Z88.2 Allergy status to sulfonamides; Z88.5 Allergy status to narcotic agent; I25.2 Old myocardial infarction; Z87.11 Personal history of peptic ulcer disease; Z95.5 Presence of coronary angioplasty implant and graft; Z82.49 Family history of ischemic heart disease and other diseases of the circulatory system; Z83.3 Family history of diabetes mellitus; Z79.899 Other long term (current) drug therapy; Z79.890 Hormone replacement therapy

== ENCOUNTER 2019-02-14 03:01 | Inpatient (IN) | payer MEDICARE, OTHER ==
[2019-02-14] VITALS (9 sets, daily range): BP systolic 82–119; BP diastolic 40–78
[~2019-02-14] VITALS: Ht 170.2 cm; Wt 83.5 kg
--- NOTE | ~2019-02-14 | CON ---
[place], [place] REPORT OF CONSULTATION NAME: JEROD RO [facility] #: [id number] UNIT #: [id number] ROOM: [facility] DOCTOR: PARI AGUIAR MDHISH BIRTHDATE: [birth year] DOS: 02/14/2019 I am covering for Dr. Hernández. REASON FOR CONSULTATION: Increasing troponin of 3.5. HISTORY OF PRESENT ILLNESS: An 88-year-old female. Most of the information is obtained from the chart. The patient is unable to give any history. The patient came to the Emergency Room because of increasing shortness of breath, which was significantly severe. The patient was found to be in congestive heart failure. The patient was a comfort care, but now he is still a comfort care with the DNR with patient is being monitored in the Intensive Care Unit. PAST MEDICAL HISTORY: Significant for known history of systolic dysfunction with congestive heart failure, atrial fibrillation, renal failure, coronary artery disease, cerebral hemorrhage, chronic hyponatremia, chronic kidney disease, dyslipidemia, history of myocardial infarction, hypothyroidism, and history of ST elevation myocardial infarction. PAST SURGICAL HISTORY: History of permanent pacemaker, bypass surgery and stent placement. She does have a pacemaker and defibrillator placed in 1997, bypass surgery also at that time. SOCIAL HISTORY: Not a smoker, not an alcoholic. FAMILY HISTORY: Noncontributory. REVIEW OF SYSTEMS: Not possible because the patient is lethargic and just mumbles. Unable to give any history. HOME MEDICATIONS: Include isosorbide, lisinopril, spironolactone, gabapentin, carvedilol, amiodarone, apixaban, ticagrelor, and pravastatin. PHYSICAL EXAMINATION: GENERAL: The patient is very lethargic, just mumbles and does not answer any questions. HEENT: Unremarkable. NECK: Supple, elevated JVD. LUNGS: No wheezing. HEART: Sounds are regular. ABDOMEN: Soft. EXTREMITIES: No edema. Pulses 2+. NEUROLOGICAL: She is not oriented, just mumbles at this point. LABORATORY DATA: Shows hemoglobin 10.5, hematocrit 35.7. Last troponin is 3.1, initially was 0.23. EKG shows atrial fibrillation, interventricular conduction delay with nonspecific ST-T changes. Electrolytes, glucose 111, creatinine is 1.6. GFR is 31. Sodium 140, potassium 5. C-reactive protein is elevated. IMPRESSION: The patient with a known history of myocardial infarction, [place], [place] REPORT OF CONSULTATION NAME: JEROD RO UNIT #: [id number] ROOM: [facility] DOCTOR: SALMA AGUIAR MD BIRTHDATE: [birth year] cardiomyopathy, atrial fibrillation, altered mental status, congestive heart failure, systolic and failure to thrive. RECOMMENDATIONS: Supportive measures as per patient's and the family's request and the patient was comfort care. Aggressive medical management. Right now, the heart rate is controlled. Agree with anticoagulation, beta blockers, lipid lowering agents and CASEY inhibitor, core measures, supportive care and we will follow up. SALMA AGUIAR MD CM:CONSTR:REPORT OF CONSULTATION 1111 02/24/19 0921 interface
--- NOTE | ~2019-02-14 | EKG ---
[place], [place] ELECTROCARDIOGRAM REPORT NAME: JEROD RO UNIT #: [id number] ROOM: [facility] DOCTOR: EPIPHANY DRAFT REPORT BIRTHDATE: [birth year] [facility] Test Date: 2019-02-14 Test Time: 03:27:10 Pat Name: JEROD RO Department: Room: [facility] Gender: F Life Skills Educator: : 1930 Requested By: LG DOSHI Order Number: [id number] Reading MD: Cali Ramirez MD Measurements Intervals [place] Rate: 132 P: WA: QRS: 59 QRSD: 146 T: 216 QT: 343 QTc: 508 Interpretive Statements Atrial fibrillation IVCD, consider atypical LBBB Compared to ECG 01/25/2019 19:44:29 Ventricular premature complex(es) no longer present Electronically Signed On 02-16-2019 10:19:10 PDT by Cali Ramirez MD CM:EKGRPT:ELECTROCARDIOGRAM REPORT [id number] 1019 LG DOSHI MD EPIPHANY DRAFT REPORT LG DOSHI MD
[~2019-02-14 03:01] MED LIST changes: +ATIVAN0.5 MG PO; +LEVEMIR100 UNIT/1 SC; +LISINOPRIL2.5 MG PO; +MORPHINE S20 MG/5 ML PO; +NOVOLOG10 ML SC
[2019-02-14 03:36] LABS: BASO % 0.4 % (0.0-1.0); EOS # 0.1 10*3/uL (0.0-0.4); EOS % 0.9 % (1.0-4.0); HEMATOCRIT 35.7 % (37.0-47.0); HEMOGLOBIN 10.5 g/dl (12.0-16.0); LYMPH % 13.6 % (27.0-41.0); MEAN CELL VOLUME 81.3 fl (81.0-99.0); MEAN CORPUSCULAR HGB 23.9 pg (27.0-31.0); MEAN CORPUSCULAR HGB CONC 29.4 g/dl (33.0-37.0); MEAN PLATELET VOLUME 8.5 fl (9.6-12.3); MONO # 0.6 10*3/uL (0.1-1.0); MONO % 7.8 % (3.0-9.0); NEUT # 5.7 10*3/uL (2.3-7.9); NEUT % 76.6 % (47.0-73.0); PLATELET COUNT AUTOMATED 236 10*3/uL (130-400); RED BLOOD COUNT 4.39 10*6/uL (4.10-5.10); RED CELL DISTRI WIDTH 21.3 % (0-14.5); WHITE BLOOD COUNT 7.5 10*3/uL (4.8-10.8)
[2019-02-14 03:48] LABS: ACT PARTIAL THROMBO TIME 26.5 SECONDS (20.0-32.1); INTERNATIONAL NORM RATIO 1.1 (2.0-3.5)
[2019-02-14 03:52] LABS: ALBUMIN 3.3 gm/dl (3.1-4.5); CREATININE 1.6 mg/dL (0.55-1.02); TOTAL PROTEIN 7.8 gm/dL (6.4-8.2); TROPONIN I 0.023 ng/ml (<0.045)
[2019-02-14 04:58] LABS: BILIRUBIN NEGATIVE (NEGATIVE); BLOOD NEGATIVE (NEGATIVE); CLARITY SL CLOUDY (CLEAR); COLOR YELLOW (YELLOW); GLUCOSE NEGATIVE (NEGATIVE); KETONE NEGATIVE (NEGATIVE); LEUKO ESTERASE NEGATIVE (NEGATIVE); NITRITE NEGATIVE (NEGATIVE); PH 5.5 (5.0-9.0); SPECIFIC GRAVITY 1.015 (1.005-1.030); UROBILINOGEN 0.2 E.U./dl (0.2-1.0)
--- NOTE | 2019-02-14 05:29 | NUR ---
[facility] WAS UPDATED ON THE PATIENTS PLAN OF CARE
--- NOTE | 2019-02-14 06:00 | NUR ---
A 88, admitted to ICCU, under the services of ANGELLA Dale MD with a diagnosis of ACUTE CHF. Chief complaint is SOB. Patient arrived via stretcher from ER. Monitor applied. Initial assessment completed. Vital signs taken and recorded. ANGELLA DALE MD notified of admission to the unit. Orders received. See assessment for past medical history, medications and allergies. Patient and/or family oriented to unit. [facility] ICCU visitation policy reviewed. Clothing/patient valuable form completed. CORY GUARDADO
[2019-02-14] MEDS ORDERED: FEROSUL325 MG PO (06:19)
[2019-02-14] MEDS ORDERED: VITAMIN C500 M4 PO (06:29)
--- NOTE | 2019-02-14 06:45 | NUR ---
DOCTOR NOTIFIED OF WOUND. AND ORDERS WHERE NEEDED.
--- NOTE | 2019-02-14 06:46 | NUR ---
JODI NOTIFIED OF ADMISSION AND ORDERS GIVEN MURTY CONSULT CALLED TO [facility] AT THIS TIME.
--- NOTE | 2019-02-14 06:49 | NUR ---
GRICEL CALLED BACK NO NEW ORDRES AT THIS TIME.
--- NOTE | 2019-02-14 10:38 | NUR ---
DR AGUIAR AWARE OF ELEVATED TROP
--- NOTE | 2019-02-14 20:06 | NUR ---
PATIENT ALERT TO SELF BUT CONFUSED TO TIME AND PLACE. PATIENT MORE ALERT THAN THIS MORNING.
--- NOTE | 2019-02-15 01:09 | NUR ---
PATIENT GIVEN ATIVAN FOR AGITATION AND INCREASED RESPIRATIONS
--- NOTE | 2019-02-15 03:55 | NUR ---
TWO ATTEMPTS TO CALL PATIENTS SON TO INFORM HIM OF PATIENT DETERIORATING CONDITION AND NO ANSWER DID HOWEVER NOTFY PATIENTS SISTERS ERIN AND HER SISTER LEONID. A VOICEMAIL WQAS LEFT ON SONS'S VOICEMAIL TO PLEASE CALL THE HOSPITAL SOON HE GOT THE MESSAGE. NO RETURN CALL AT THIS TIME. SUPERVISIOR NOTIFIED AT THIS TIME OF PATIENT CONDITION ALSO PATINT IS A DNRCC
[2019-02-15 04:00] VITALS: BP 82/58
--- NOTE | 2019-02-15 06:12 | NUR ---
AFT4ER GETTING EVERYTHING READY FOR PATIENT TO GET BATHED LAST NIGHT. THE PATIENT REFUSED. I TRIED AGAIN THIS MORNING TO AT LEAST WASH HER FACE SHE SAID NO . FAMILY IS AT BEDSIDE. PATIENTS SON IS ON HIS WAY FROM [place].
--- NOTE | 2019-02-15 06:14 | NUR ---
PATIENT IS REFUSING DAILY WEIGHT BECUASE SHE CAN NOT LAY FLAT SHE CAN NOT BREATH WHEN SHE DOES.
[2019-02-15 06:34] LABS: BASO % 0.3 % (0.0-1.0); EOS % 0.1 % (1.0-4.0); HEMATOCRIT 34.5 % (37.0-47.0); HEMOGLOBIN 10.3 g/dl (12.0-16.0); LYMPH # 0.8 10*3/uL (1.3-4.4); MEAN CELL VOLUME 78.9 fl (81.0-99.0); MEAN CORPUSCULAR HGB 23.6 pg (27.0-31.0); MEAN CORPUSCULAR HGB CONC 29.9 g/dl (33.0-37.0); MEAN PLATELET VOLUME 9.1 fl (9.6-12.3); MONO # 0.3 10*3/uL (0.1-1.0); MONO % 3.3 % (3.0-9.0); NEUT # 7.9 10*3/uL (2.3-7.9); NEUT % 86.7 % (47.0-73.0); PLATELET COUNT AUTOMATED 244 10*3/uL (130-400); RED BLOOD COUNT 4.37 10*6/uL (4.10-5.10); RED CELL DISTRI WIDTH 22.1 % (0-14.5); WHITE BLOOD COUNT 9.1 10*3/uL (4.8-10.8)
--- NOTE | 2019-02-15 06:59 | NUR ---
PHYSICAL THERAPY PHYSICAL THERAPY Nursing screen received. Chart review complete. Recommend normal daily mobility with nursing prn. PAtient is long tern care. Thank you. Kelsie Cano,PT
[2019-02-15 07:05] LABS: ALBUMIN 3.2 gm/dl (3.1-4.5); CREATININE 1.9 mg/dL (0.55-1.02); POTASSIUM 5.3 mmol/L (3.5-5.1); TOTAL PROTEIN 7.4 gm/dL (6.4-8.2)
[2019-02-15 08:00] VITALS: BP 90/59
--- NOTE | 2019-02-15 08:06 | NUR ---
Patient comes from [facility] exterminator care, ok to return when medically stable.
--- NOTE | 2019-02-15 08:45 | NUR ---
PATIENT SITTING UP EATING BREAKFAST WITH THE ASSISTANCE OF HER SISTER AT THIS TIME. DENIES ANY COMPLAINTS AT THIS TIME. CALL LIGHT WITHIN REACH. RNWILL CONTINUE TO MONITOR
--- NOTE | 2019-02-15 10:25 | NUR ---
PATIENT CALLED RN INTO ROOM, ASKED FOR A FAN BECAUSE SHE WAS HOT, AND IS ALSO AKING FOR SOMETHING SWEET TO DRINK. RN PROVIDED APPLE JUICE TO PATIENT. INFORMED PATIENT THAT FAMILY WILL BE BACK SHORTLY TO VISIT. RN WILL CONTINUE TO MONITOR
--- NOTE | 2019-02-15 10:29 | NUR ---
PATIENT REFUSED ASSESSMENT OF WOUNDS AT THIS TIME.
--- NOTE | 2019-02-15 10:39 | NUR ---
FAMILY BACK IN TO SEE PATIENT, CALLED RN IN TO ASSESS PATIENT. PATIENT NO LONGER RESPONSIVE TO VERBAL STIMULI. RN SUCTIONED MOUTH FOR ORAL SECRETIONS. SON CALLED AND MADE AWARE BY FAMILY. RN WILL CONTINUE TO MONITOR
--- NOTE | 2019-02-15 10:50 | NUR ---
PATIENT NOW ASYSTOLE. 2ND NURSE ADEEL RN IN TO VERIFY THAT PATIENT HAS PASSED. FAMILY AT BEDSIDE
--- NOTE | 2019-02-15 11:15 | NUR ---
[facility] CALLED AT THIS TIME. THEY PLACED A HOLD ON THE PATIENT AT THIS TIME.
--- NOTE | 2019-02-15 11:51 | NUR ---
UPON LOOKING AT PATIENTS CHART FURTHER, PATIENT HAS A POST FORM THAT SPECIFICALLY STATES THAT SHE DOES NOT WANT TO DONATE ORGAN AFTER , [facility] NOTIFIED. PAPER TO BE FAXED AND HOSPITAL WILL BE CALLED WHEN THEY HAVE MADE THEIR DECISION
--- NOTE | 2019-02-15 12:11 | NUR ---
[facility] NOTIFIED THAT PATIENT IS READY TO BE PICKED UP AT THIS TIME.
--- NOTE | 2019-02-15 12:11 | NUR ---
[facility] NOTIFIED THIS RN THAT PATIENT IS NO LONGER UNDER HOLD.
--- NOTE | 2019-02-15 13:00 | NUR ---
[facility] HERE TO PICK BODY. DENTURES SENT WITH BODY AND HOME.
--- NOTE | 2019-02-15 16:11 | NUR ---
Nursing screen received. Patient discharged from hospital. Krysta Ellis OTr/L
== END 2019-02-15 13:00 | disposition expired ==
LOC: ED 03:01 → ICCU 05:10 → EDHOLD 05:10 → ICCU 05:24
PROVIDERS: Emergency Medicine Emergency Medical Services; ADMIT Internal Medicine
PROC: 5A09357 Assistance with Respiratory Ventilation, Less than 24 Consecutive Hours, Continuous Positive Airway Pressure (ICD-10-PCS; principal; 2019-02-14)
DX: I21.4 Non-ST elevation (NSTEMI) myocardial infarction (principal); J18.9 Pneumonia, unspecified organism; I50.23 Acute on chronic systolic (congestive) heart failure; N17.9 Acute kidney failure, unspecified; E87.1 Hypo-osmolality and hyponatremia; I13.0 Hypertensive heart and chronic kidney disease with heart failure and stage 1 through stage 4 chronic kidney disease, or unspecified chronic kidney disease; I42.9 Cardiomyopathy, unspecified; I95.9 Hypotension, unspecified; I48.91 Unspecified atrial fibrillation; E03.9 Hypothyroidism, unspecified; N18.3 Chronic kidney disease, stage 3 (moderate); E11.22 Type 2 diabetes mellitus with diabetic chronic kidney disease; I25.10 Atherosclerotic heart disease of native coronary artery without angina pectoris; E78.5 Hyperlipidemia, unspecified; K21.9 Gastro-esophageal reflux disease without esophagitis; E87.5 Hyperkalemia; Z66 Do not resuscitate; Z51.5 Encounter for palliative care; R62.7 Adult failure to thrive; Z88.2 Allergy status to sulfonamides; Z88.5 Allergy status to narcotic agent; I25.2 Old myocardial infarction; Z87.11 Personal history of peptic ulcer disease; Z87.440 Personal history of urinary (tract) infections; Z95.5 Presence of coronary angioplasty implant and graft; Z95.0 Presence of cardiac pacemaker; Z95.1 Presence of aortocoronary bypass graft; Z82.49 Family history of ischemic heart disease and other diseases of the circulatory system; Z83.3 Family history of diabetes mellitus; Z79.899 Other long term (current) drug therapy; Z79.890 Hormone replacement therapy; Z68.28 Body mass index [BMI] 28.0-28.9, adult